=== PATIENT | male | born 1960 | race African-American/Black ===

== ENCOUNTER 2021-02-03 10:38 | Emergency (ER) | payer MEDICARE ==
[~2021-02-03] VITALS: Ht 177.8 cm; Wt 97.7 kg
--- NOTE | 2021-02-03 11:21 | PHYS DOC ---
Past Medical History Past Medical History: Hypertension Past Surgical History: No Surgical History Smoking Status: Never Smoker Alcohol Use: Occasionally Drug Use: Cocaine General Adult EDM: Chief Complaint: CHEST PAIN HPI: HPI: 60-year-old male with a history of substance abuse, hypertension presents to the emergency department complaining of abdominal pain for 3 months, chest pain for the same time. He reports yesterday he tried to self medicate with cocaine which made his pain worse. He notes that there is no change in his symptoms today, he does states that he got tired of the pain and wanted to be evaluated. He states the pain is "in all of his organs in his abdomen", and there is no particular area of pain. The patient denies nausea, vomiting, fever, chills, shortness of breath, urinary symptoms, cough, recent trauma, or any other complaints. Review of Systems: Review of Systems: Constitutional: Denies fever or chills. Eyes: Denies change in vision, pain. HENT: Denies congestion or sore throat. Respiratory: Denies cough or shortness of breath. Cardiovascular: Admits to chest pain, denies edema. GI: Admits to abdominal pain, denies nausea vomiting or diarrhea. : Denies change in urination, dysuria. Musculoskeletal: Denies extremity pain, or trauma. Skin: Denies rash, skin change. Neurologic: Denies headache, focal weakness. Psychiatric: Denies depression or anxiety. All other systems reviewed as negative except for what was mentioned in the HPI. Heart Score: C/O Chest Pain: Yes HEART Score for Chest Pain: HEART Score for Chest Pain Response (Comments) Value History Slighlty/Non-Suspicious 0 ECG Normal 0 Age >45 - < 65 1 Risk Factors 1 or 2 Risk Factors 1 Troponin < Normal Limit 0 Total 2 Allergies: Allergies: No known drug allergies Physical Exam: PE: Constitutional: No acute distress, non-toxic appearance. HENT: Atraumatic, bilateral external ears normal, nose normal. Eyes: PERRLA, EOMI, conjunctiva normal, no discharge. Neck: Normal range of motion, supple, no stridor. Cardiovascular: Heart rate regular rhythm. 2+ radial pulses Lungs & Thorax: No respiratory distress, symmetrical expansion. Bilateral br eath sounds clear to auscultation Abdomen: Soft, minimal tenderness, morbidly obese Skin: Warm, dry. Extremities: No tenderness, no cyanosis, ROM intact, no edema. Neurologic: Alert and oriented X 3, normal motor function, normal sensory function, no focal deficits noted. Non ataxic gait. GCS 15. Psychologic: Affect normal, judgment normal, mood normal. Current Patient Data: Labs: Laboratory Tests Test 02/03/21 11:11 02/03/21 12:37 White Blood Count 8.1 x10^3/uL (4.0-11.0) Red Blood Count 5.60 x10^6/uL (4.30-5.70) Hemoglobin 15.0 g/dL (13.0-17.5) Hematocrit 45.5 % (39.0-53.0) Mean Corpuscular Volume 81 fL (79-100) Mean Corpuscular Hemoglobin 27 pg (25-35) Mean Corpuscular Hemoglobin Concent 33 g/dL (31-37) Red Cell Distribution Width 14.3 % (11.5-14.5) Platelet Count 167 x10^3/uL (140-400) Neutrophils (%) (Auto) 63 % (31-73) Lymphocytes (%) (Auto) 27 % (24-48) Monocytes (%) (Auto) 8 % (0-9) Eosinophils (%) (Auto) 1 % (0-3) Basophils (%) (Auto) 1 % (0-3) Neutrophils # (Auto) 5.1 x10^3/uL (1.8-7.7) Lymphocytes # (Auto) 2.2 x10^3/uL (1.0-4.8) Monocytes # (Auto) 0.7 x10^3/uL (0.0-1.1) Eosinophils # (Auto) 0.1 x10^3/uL (0.0-0.7) Basophils # (Auto) 0.0 x10^3/uL (0.0-0.2) Sodium Level 146 mmol/L (136-145) Potassium Level 3.9 mmol/L (3.5-5.1) Chloride Level 108 mmol/L (98-107) Carbon Dioxide Level 29 mmol/L (21-32) Anion Gap 9 (6-14) Blood Urea Nitrogen 15 mg/dL (8-26) Creatinine 1.4 mg/dL (0.7-1.3) Estimated GFR (Cockcroft-Gault) 62.8 Glucose Level 205 mg/dL (70-99) Calcium Level 9.2 mg/dL (8.5-10.1) Creatine Kinase 830 U/L (39-308) Troponin I Quantitative < 0.017 ng/mL (0.000-0.055) YN-Zjv-C-Type Natriuretic Peptide 92 pg/mL (0-124) Urine Opiates Screen Neg (NEG) Urine Methadone Screen Neg (NEG) Urine Barbiturates Neg (NEG) Urine Phencyclidine Screen Neg (NEG) Urine Amphetamine/Methamphetamine Neg (NEG) Urine Benzodiazepines Screen Neg (NEG) Urine Cocaine Screen Pos (NEG) Urine Cannabinoids Screen Neg (NEG) Urine Ethyl Alcohol Neg (NEG) Vital Signs: Vital Signs Date Time Temp Pulse Resp B/P (MAP) Pulse Ox O2 Delivery O2 Flow Rate FiO2 02/03/21 10:50 98.7 90 17 176/101 96 Room Air 98.7 EKG: EKG: Normal sinus rhythm rate of 90, no ST-T wave changes, no ectopic beats, normal axis, normal IA, QRS, and QTc intervals. Impression: Normal EKG. interpreted by meTang D.O. Radiology/Procedures: Radiology/Procedures: PROCEDURE: CHEST AP ONLY EXAM: Chest, single view. HISTORY: Chest pain. COMPARISON: None. FINDINGS: A frontal view of the chest is obtained. There is no infiltrate, pleural effusion or pneumothorax. There is cardiomegaly. IMPRESSION: Cardiomegaly. Electronically signed by: Sol Stover MD (02/03/2021 11:46 AM) PROCEDURE: CT ABD PELV W/ IV CONTRST ONLY EXAM: Abdomen and pelvis CT with intravenous contrast. HISTORY: Pain. TECHNIQUE: Computed tomographic images of the abdomen and pelvis were obtained following the administration of intravenous contrast. Multiplanar reformatting was performed. *One or more of the following individualized dose reduction techniques were utilized for this examination: 1. Automated exposure control. 2. Adjustment of the mA and/or kV according to patient size. 3. Use of iterative reconstruction technique. COMPARISON: None. FINDINGS: Evaluation of the lower thorax demonstrates posterior dependent atelectasis. There is no infiltrate or pleural effusion. The heart is normal in size. There is no focal hepatic lesion. The liver is upper normal in size. The gallbladder, pancreas, spleen, stomach, adrenal glands and right kidney are unremarkable. There is a 1 mm focus of hyperdensity within the left kidney which may be due to early excretion of contrast or a nonobstructing stone. There is no appendicitis. There is no bowel obstruction. There is no abnormal bowel wall thickening. There is sigmoid diverticulosis. There is no convincing diverticulitis. The urinary bladder is nearly empty. The aorta is normal in caliber. There is no lymphadenopathy. There is no acute or suspicious osseous finding. There is an incidental transitional lumbosacral segment. IMPRESSION: 1. Sigmoid diverticulosis. 2. No convincing acute abdominal or pelvic finding. Electronically signed by: Sol Stover MD (02/03/2021 12:30 PM) Course & Med Decision Making: Course & Med Decision Making Labs are significant for positive cocaine in UDS, will discharge patient home as his heart score is only 2. Abdominal CT is negative. Patient stable for discharge home. All symptoms are chronic, he was referred to a primary care physician and was given information to follow-up in the primary care clinic. I counseled patient on his high blood pressure creatinine. He was advised to drink plenty of fluids at home and follow-up for repeat blood pressure readings and labs. We will start him on amlodipine 5 mg daily Departure Departure Impression: Primary Impression: Abdominal pain Additional Impressions: Chest pain Elevated blood pressure reading Disposition: 01 HOME / SELF CARE / HOMELESS Condition: STABLE Referrals: NO PCP (PCP) Patient Instructions: Abdominal Pain, [id number] Additional Instructions: You were seen in the emergency department for abdominal pain. Your tests did not show any obvious acute cause of your symptoms and your physical exam was non concerning for a dangerous disease process at this time. This however can change early in a disease course. You must return to the ED if you develop any new or worrisome symptoms for another exam. - Make sure to drink plenty of fluids at home - You may take a gentle laxative such as Miralax (over the counter) for bowel comfort. - Avoid drinking alcohol while you are having abdominal pain as this may wo rsen symptoms. - Return to the ER if you are not able to tolerate water and/or a normal diet, have increased pain or a change in character of your pain, develop a fever (>100.3 F), have nausea, vomiting and/or diarrhea that is unable to be treated at home, pass out, and/or you are not able to perform you normal daily activity. Scripts Amlodipine Besylate (AMLODIPINE BESYLATE) 5 Mg Tablet 5 MG PO DAILY for 30 Days, #30 TAB Prov: TANG RINCON DO 02/03/21 TANG RINCON DO Feb 03, 2021 11:21
[2021-02-03 11:32] LABS: CALCIUM 9.2 mg/dL (8.5-10.1); CREATININE 1.4 mg/dL (0.7-1.3); GFR 62.8; POTASSIUM 3.9 mmol/L (3.5-5.1)
[2021-02-03 11:41] LABS: BASO % 1 % (0-3); EOS # 0.1 x10^3/uL (0.0-0.7); EOS % 1 % (0-3); HEMATOCRIT 45.5 % (39.0-53.0); LYMPH # 2.2 x10^3/uL (1.0-4.8); LYMPH % 27 % (24-48); MEAN CORPUSCULAR HEMOGLOBIN 27 pg (25-35); MEAN CORPUSCULAR HGB CONC 33 g/dL (31-37); MEAN CORPUSCULAR VOLUME 81 fL (79-100); MONO # 0.7 x10^3/uL (0.0-1.1); MONO % 8 % (0-9); NEUT # 5.1 x10^3/uL (1.8-7.7); NEUT % 63 % (31-73); PLATELET COUNT 167 x10^3/uL (140-400); RED CELL DISTRIBUTION WIDTH 14.3 % (11.5-14.5); WHITE BLOOD COUNT 8.1 x10^3/uL (4.0-11.0)
[2021-02-03] MEDS ORDERED: CONTRAST GIVEN. MC PRN (11:45)
[2021-02-03] MEDS ORDERED: IOHEXOL 300 MG/ML 100ML VIAL. IV ONE (11:45)
--- NOTE | 2021-02-03 11:48 | RAD ---
EXAM: Chest, single view. HISTORY: Chest pain. COMPARISON: None. FINDINGS: A frontal view of the chest is obtained. There is no infiltrate, pleural effusion or pneumo thorax. There is cardiomegaly. IMPRESSION: Cardiomegaly. Electronically signed by: Sol Stover MD (02/03/2021 11:46 AM) [id number]
--- NOTE | 2021-02-03 12:32 | RAD ---
EXAM: Abdomen and pelvis CT with intravenous contrast. HISTORY: Pain. TECHNIQUE: Computed tomographic images of the abdomen and pelvis were obtained following the administ ration of intravenous contrast. Multiplanar reformatting was performed. *One or more of the following individualized dose reduction techniques were utilized for this examina tion: 1. Automated exposure control. 2. Adjustment of the mA and/or kV according to patient size. 3. Use of iterative reconstruction technique. COMPARISON: None. FINDINGS: Evaluation of the lower thorax demonstrates posterior dependent atelectasis. There is no in filtrate or pleural effusion. The heart is normal in size. There is no focal hepatic lesion. The live r is upper normal in size. The gallbladder, pancreas, spleen, stomach, adrenal glands and right kidne y are unremarkable. There is a 1 mm focus of hyperdensity within the left kidney which may be due to early excretion of contrast or a nonobstructing stone. There is no appendicitis. There is no bowel obstruction. There is no abnormal bowel wall thickening. There is sigmoid diverticulosis. There is no convincing diverticulitis. The urinary bladder is nearly empty. The aorta is normal in caliber. There is no lymphadenopathy. There is no acute or suspicious osseous finding. There is an incidental transitional lumbosacral segment. IMPRESSION: 1. Sigmoid diverticulosis. 2. No convincing acute abdominal or pelvic finding. Electronically signed by: Sol Stover MD (02/03/2021 12:30 PM) [id number]
[2021-02-03 12:52] LABS: AMPHETAMINE/METHAMPHETAMINE NEG (NEG); BARBITURATES NEG (NEG); BENZODIAZEPINES NEG (NEG); CANNABINOIDS NEG (NEG); COCAINE POS (NEG); METHADONE NEG (NEG); OPIATES NEG (NEG); PHENCYCLIDINE NEG (NEG)
[2021-02-03 13:17] VITALS: BP 163/96
[2021-02-03] MEDS ORDERED: AMLO-186 PO (13:33)
--- NOTE | 2021-02-03 18:46 | EKG ---
[facility] [address] [place] [id number] Test Date: 2021-02-03 Test Time: 10:53:17 Pat Name: ANIA LOPEZ Department: Room: Gender: M [employer]: : 1960 Requested By: KYLE RINCON Order Number: [id number] Reading MD: Measurements Intervals [place] Rate: 90 P: 23 MO: 164 QRS: 4 QRSD: 88 T: 70 QT: 364 QTc: 449 Interpretive Statements SINUS RHYTHM LEFT ATRIAL ABNORMALITY R-S TRANSITION ZONE IN V LEADS DISPLACED TO THE RIGHT T ABNORMALITY IN HIGH LATERAL LEADS ABNORMAL ECG RI6.02 No previous ECG available for comparison
== END 2021-02-03 13:58 | disposition home or self-care (01) ==
LOC: ER 10:38
DX: R10.84 Generalized abdominal pain (principal); Z20.822 Contact with and (suspected) exposure to COVID-19; R07.89 Other chest pain; I10 Essential (primary) hypertension; K57.30 Diverticulosis of large intestine without perforation or abscess without bleeding
CPT/HCPCS: 36415; 71045; 74177; 80048; 80307; 82550; 83880; 84484; 85025; 93005; 99285; Q9967; U0003; U0005